=== PATIENT | female | born 2000 | race Asian ===

== ENCOUNTER 2022-11-22 12:36 | Emergency (ER) | payer BC, SELFPAY ==
[2022-11-22 12:48] VITALS: BP 106/65; PULSE 82; RESP 20; TEMP 36.8; O2SAT 96; BMI 22.3
--- NOTE | 2022-11-22 13:04 | ED_ITS ---
HPI - General Adult General Chief complaint: Sore Throat Stated complaint: Sore throat, body aches, weakness Time Seen by Provider: 11/22/22 12:40 History of Present Illness HPI narrative: Patient is a 22-year-old [employer] student who presents for weakness sore throat. She felt lightheaded the couple of times today. She has had a sore throat for about a week, which has been on and off. She is able to swallow okay. She is a senior. She is from [place]. Not sure about her direction next year in terms of next steps after college. She has had no cough, no abdominal pain, no dysuria frequency. Does complain of a mild sore throat. Able open her mouth fully. Related Data Allergies Allergy/AdvReac Type Severity Reaction Status Date / Time No Known Drug Allergies Allergy Verified 11/22/22 12:47 Review of Systems Status of ROS: Reports: 6 or more systems reviewed and unremarkable except as noted in History and below Narrative: Patient reports she has had some looser stool and diarrhea today, as had some body aches as well PFSH PFSH Social History Smoking Status: Never smoker Do you use any of these nicotine containing products: None Second hand tobacco smoke exposure: No How often do you have a drink containing alcohol: monthly or less How many standard drinks containing alcohol do you have on a typical day: 1 or 2 How often do you have six or more drinks on one occasion: Never AUDIT-C Alcohol total score: 1 Non-prescribed substance use: denies use service: No Exam Narrative: Exam Narrative: Objective: Vital signs are unremarkable In general patient is noncyanotic in no apparent distress HEENT shows mildly dry mucous membranes throat otherwise clear neck supple actively chest is clear Heart rhythm regular heart murmur Abdomen benign soft nontender No hepatosplenomegaly Extremities are no edema neurologic nonfocal. Skin periphery is warm and dry Const: Vital Signs, click to edit/add: Vital Signs - 24 hr 11/22/22 12:48 Temperature 98.2 F Pulse Rate [Pulse Oximeter] 82 Respiratory Rate 20 Blood Pressure [Ri ght Upper Arm] 106/65 Pulse Oximetry 96 Oxygen Delivery Me thod Room Air Course Vital Signs Vital signs: Initial Vital Signs Temperature 98.2 F 11/22/22 12:48 Temperature Source Temporal Artery Scan 05/03/23 12:48 Pulse Rate 82 11/22/22 12:48 Pulse Rhythm Regular 11/22/22 12:48 Respiratory Rate 20 11/22/22 12:48 Blood Pressure 106/65 11/22/22 12:48 Blood Pressure Mean 78 11/22/22 12:48 Blood Pressure Position Supine 11/22/22 12:48 Pulse Oximetry 96 11/22/22 12:48 Oxygen Delivery Method Room Air 11/22/22 12:48 Vital Signs Temperature 98.2 F 11/22/22 12:48 Pulse Rate 82 11/22/22 12:48 Respiratory Rate 20 11/22/22 12:48 Blood Pressure 106/65 11/22/22 12:48 Pulse Oximetry 96 11/22/22 12:48 Oxygen Delivery Method Room Air 11/22/22 12:48 Temperature 98.2 F 11/22/22 12:48 Pulse Rate 82 11/22/22 12:48 Respiratory Rate 20 11/22/22 12:48 Blood Pressure 106/65 11/22/22 12:48 Pulse Oximetry 96 11/22/22 12:48 Oxygen Delivery Method Room Air 11/22/22 12:48 Medical Decision Making MDM Narrative Medical decision making narrative: Patient is a 22-year-old female with sore throat for about a week, as had some loose stool and body aches now. I think be [place] check for COVID/influenza/RSV. Will also check electrolytes labs, give some IV hydration. Will check CBC and liver function profile. Will also do a strep test and a mono test. Disposition pending findings above. Addendum: Patient's lab studies look reassuring his strep test is negative, Monospot is negative, COVID is negative. Recommend Tylenol observation fluids rest off school for couple of days. Return to primary care as needed, return to ED as needed. I suspect this is more of a viral syndrome but needs careful monitoring. Lab Data Labs: Lab Results 11/22/22 11/22/22 Range/Units 12:40 13:10 WBC 8.88 (4.50-11.00) K/uL RBC 4.98 (4.00-5.20) m/uL Hgb 14.0 (12.0-16.0) gm/dL Hct 42.4 (33.0-51.0) % MCV 85 (80-100) fL MCH 28 (26-34) pg MCHC 33 (32-36) gm/dL RDW Coeff of Jaxon 13.3 (11.5-15.5) % Plt Count 180 (140-440) K/uL Neut % (Auto) 91.9 H (42.0-72.0) % Lymph % (Auto) 2.6 L (20-44) % Brooke % (Auto) 5.0 (0.0-11.0) % Eos % (Auto) 0.2 (0.0-7.0) % Baso % (Auto) 0.2 (0.0-3.0) % Neut # (Auto) 8.20 H (1.7-7.0) K/uL Lymph # (Auto) 0.20 L (0.90-2.90) K/uL Brooke # (Auto) 0.40 (0.00-0.90) K/UL Eos # (Auto) 0.02 (0.00-0.50) K/uL Baso # (Auto) 0.02 (0.00-0.30) K/uL Sodium 136 (135-149) mmol/L Potassium 4.2 (3.6-5.1) mmol/L Chloride 102 (96-114) mmol/L Carbon Dioxide 27 (20-32) mmol/L BUN 15 (5-24) mg/dL Creatinine 0.6 (0.5-1.5) mg/dL Estimated Creat Clear 127.00 Estimated GFR 130 ml/min Glucose 92 (60-115) mg/dL Calcium 8.5 (8.4-10.6) mg/dL Total Bilirubin 1.3 (0.1-1.5) mg/dL Direct Bilirubin 0.0 (0.0-0.5) mg/dL AST 25 (12-35) U/L ALT 22 (4-35) U/L Alkaline Phosphatase 79 (40-150) U/L C-Reactive Protein 0.9 (0.5-1.0) mg/dL Total Protein 6.4 (6.0-8.3) g/dL Albumin 4.0 (3.3-5.0) g/dL Amylase 80 (18-89) U/L SARS-CoV-2 (PCR) Negative SARS-CoV-2 (Negative) Monoscreen Negative (Negative) Influenza Type A (PCR) Negative PCR FLU A (Negative) Influenza Type B (PCR) Negative PCR FLU B (Negative) RSV (PCR) Negative PCR RSV (Negative) Group A Strep DNA NOT DETECTED (Not Detectd) Discharge Plan Discharge Clinical Impression: Acute viral syndrome, Pharyngitis Patient Disposition: Home w/ Parent or Adult Condition: Stable Additional Instructions: Rest, light activity, adequate fluid intake, Advil or Tylenol as needed, recheck with primary care in the next 2 days. Return to ED sooner problems concerns worsening. Would recommend off school for 2 days. Activity Level: Light activity Discharge Diet: Regular Stand Alone Forms: [employer] Info Instructions
[2022-11-22 13:22] LABS: Basophils Absolute Auto 0.02 K/uL (0.00-0.30); Basophils Percent Auto 0.2 % (0.0-3.0); Eosinophils Absolute Auto 0.02 K/uL (0.00-0.50); Eosinophils Percent Auto 0.2 % (0.0-7.0); Hematocrit 42.4 % (33.0-51.0); Immature Granulocytes Abs Auto 0.01 K/uL (0.00-0.30); Immature Granulocytes Pct Auto 0.1 %; Lymphocytes Percent Auto 2.6 % (20-44); Mean Corpuscular HGB Conc 33 gm/dL (32-36); Mean Corpuscular Hemoglobin 28 pg (26-34); Mean Corpuscular Volume 85 fL (80-100); Neutrophils Percent Auto 91.9 % (42.0-72.0); Platelet Count* 180 K/uL (140-440); RDW Coefficient of Variation % 13.3 % (11.5-15.5); Red Blood Count 4.98 m/uL (4.00-5.20); White Blood Count* 8.88 K/uL (4.50-11.00)
[2022-11-22 13:23] LABS: Slide Review Reflex No
[2022-11-22] MEDS: ACETAMINOPHEN 500 MG TABLET 1000 MG PO (13:25)
[2022-11-22] MEDS: 0.9 % SODIUM CHLORIDE 1000 ml 1,000 ML 6000 ML IV (13:25)
[2022-11-22 13:30] LABS: Strep A DNA Probe* NOT DETECTED (Not Detectd)
[2022-11-22 13:36] LABS: PCR FLU A Negative PCR FLU A (Negative); PCR FLU B Negative PCR FLU B (Negative); PCR RSV Negative PCR RSV (Negative)
[2022-11-22 13:37] LABS: SARS PCR* Negative SARS-CoV-2 (Negative)
[2022-11-22 13:43] LABS: Chloride* 102 mmol/L (96-114); Sodium* 136 mmol/L (135-149)
[2022-11-22 13:44] LABS: Potassium* 4.2 mmol/L (3.6-5.1)
[2022-11-22 13:46] LABS: Alanine Aminotransferase* 22 U/L (4-35); Alkaline Phosphatase* 79 U/L (40-150); Amylase* 80 U/L (18-89); Aspartate Amino Transferase* 25 U/L (12-35); Bilirubin Total* 1.3 mg/dL (0.1-1.5); Blood Urea Nitrogen* 15 mg/dL (5-24); Carbon Dioxide* 27 mmol/L (20-32); Creatinine* 0.6 mg/dL (0.5-1.5); Estimated Glomerular Filt Rate 130 ml/min; Total Protein* 6.4 g/dL (6.0-8.3)
[2022-11-22 13:47] LABS: Calcium* 8.5 mg/dL (8.4-10.6); Glucose* 92 mg/dL (60-115); Mono Screen* Negative (Negative)
[2022-11-22 13:48] LABS: C Reactive Protein* 0.9 mg/dL (0.5-1.0)
== END 2022-11-22 14:32 | disposition home or self-care (01) ==
PROVIDERS: Emergency Provider Family Medicine
DX: J02.9 Acute pharyngitis, unspecified (principal); B34.9 Viral infection, unspecified
CPT/HCPCS: 36415; 80048; 80076; 82150; 85025; 86140; 86308; 87631; 87651; 99283; 99284; A9270; J7030